=== PATIENT | female | born 1980 | race Caucasian/White ===

== ENCOUNTER 2016-12-18 00:01 | Emergency (ER) | payer MEDICAID ==
--- NOTE | 2016-12-18 04:34 | ER ---
ADMIT: 12/18/2016 RM/LOC: ER [facility] MR#: [id number] [address] [facility] [place], [place] [address] LENO SRINIVASAN [address] [facility] [address] [place] [address] Emergency Room Report SEX: F AGE: 36 : 1980 DATE: 12/18/2016 The patient is a 36-year-old female, 13-week , last menstrual period 09/18/2016, complains of lower abdominal cramping and vaginal bleeding that is escalated for the past 5 days, was evaluated by Dr. Gee with ultrasound that showed viable intrauterine and subchorionic hemorrhage. The patient has been on vaginal progesterone suppositories since. Denies any fevers, chills, or dysuria. Exam remarkable for nontoxic, afebrile female, slightly tender uterus, minimal vaginal bleeding. Hemoglobin 11.8, lactic 2.9, potassium 3.3, quantitative hCG 85,309. Ultrasound shows a viable 13-week with heart rate of 158, large subchorionic hemorrhage measuring 5.6 x 7.4 x 7.4 cm consistent with a subchorionic hemorrhage. No evidence of heterotopic or intraperitoneal free fluid. The patient was given a liter of fluid, Zofran 8 mg IV push, Dilaudid 1 mg IV push with improvement of pain. Home with pelvic rest, follow up with Dr. Gee as scheduled on Saturday. The patient declined any hydrocodone. Ravi Snyder MD/ lucy JOB #: [id number] CC: Ravi Snyder MD, Attending Physician Krystal Gee MD, Family Physician Krystal Gee MD
[2017-01-11] MEDS ORDERED: PRENATAL VIT1 TAB PO (16:20)
[2017-01-11] MEDS ORDERED: FEOSOL-DPS325 MG PO (16:21)
[2017-01-11] MEDS ORDERED: MOTRIN-DPS800 MG PO (16:21)
[2017-01-11] MEDS ORDERED: COLACE-DPS100 MG PO (16:21)
== END 2016-12-18 01:57 | disposition home or self-care (01) ==
LOC: ER 00:01
DX: O20.0 Threatened abortion (principal); Z3A.13 13 weeks gestation of pregnancy; Z79.899 Other long term (current) drug therapy

== ENCOUNTER 2017-01-09 02:17 | Observation (INO) | payer MEDICAID ==
[~2017-01-09] VITALS: Ht 185.4 cm; Wt 79.4 kg
--- NOTE | ~2017-01-09 | HP ---
ADMIT: 01/09/2017 RM/LOC: 217 [facility] MR#: [id number] [address] [facility] [place], [place] [address] LENO SRINIVASAN [address] [facility] 3 [place] [address] History and Physical SEX: F AGE: 36 : 1980 DATE OF SERVICE: 01/09/2017 CHIEF COMPLAINT: Delivered at home. HISTORY OF PRESENT ILLNESS: This is a 36-year-old female, 1, now para 0-1-0-0, who delivered an approximate 16-week fetus at home and then presented to the ER for further management and care. According to ER staff physician, the placenta did deliver easily while in the emergency room. She had a small amount of bleeding but overall, her bleeding has been very minimal. She did have an ultrasound done while in the emergency room showing a thickened endometrium measuring up to 2.8 cm with possible retained products of conception. At this time, the patient reports that her was complicated by bleeding. She had been followed closely every week. She did have increased bleeding, starting on Saturday that seemed to be better on Saturday but worsened on Saturday. She eventually delivered her fetus at home early Saturday morning and then presented to the emergency room. Her has otherwise been uncomplicated. Her care has been with Dr. Gee. She, at this time, denies passing any clots. She does have increased bleeding when she is standing. She denies pain, cramping, fevers, or chills. PAST MEDICAL HISTORY: She denies hypertension, diabetes, asthma, kidney, or thyroid disease. PAST SURGICAL HISTORY: Tonsillectomy. PAST OBSTETRICAL HISTORY: This was her first . SOCIAL HISTORY: She denies tobacco, alcohol, or drug use. ALLERGIES: NO KNOWN DRUG ALLERGIES. CURRENT MEDICATIONS: vitamins. REVIEW OF SYSTEMS: GENERAL: She denies any recent fevers or chills. HEENT: She denies headaches, vision changes, difficulty swallowing, or sore throat. NECK: She denies neck pain or stiffness. RESPIRATORY: She denies coughing, shortness of breath, or difficulty breathing. CARDIOVASCULAR: She denies palpitations, chest pain, or shortness of breath. GASTROINTESTINAL: She does have nausea and heartburn and has had these symptoms throughout her . She also has constipation. She denies diarrhea or blood in her stools. GENITOURINARY: Bleeding during this last month of . She denies dysuria, frequency, urgency, or hematuria. MUSCULOSKELETAL: She denies joint pain, muscle pain, or muscle weakness. NEUROLOGIC: She denies dizziness or weakness in her extremities. HEMATOLOGIC: She denies history of bleeding disorders, blood clots, or ADMIT: 01/09/2017 RM/LOC: 217 [facility] MR#: [id number] [address], [place] [address] History and Physical SEX: F AGE: 36 : 1980 prolonged spontaneous bleeding. PHYSICAL EXAMINATION: VITAL SIGNS: Temperature is 96.9, pulse 79, respirations 18, blood pressure is 107/55. GENERAL: She is not in any acute distress. HEENT: Head is normocephalic, atraumatic. Pupils are equal, round, and reactive to light and accommodation. Extraocular muscles are intact. NECK: Supple. HEART: Regular rate and rhythm. LUNGS: Clear bilaterally. ABDOMEN: Soft, nontender, and nondistended. EXTREMITIES: Nontender. IMAGING: Pelvic ultrasound shows thickened endometrium, measuring up to 2.8 cm with possible retained products of conception. Her blood type is O positive. Hemoglobin 9.4. IMPRESSION: This is a 36-year-old female, 1, para 0-1-0-0, currently day zero from a delivery at approximately 16 weeks with possible retained products of conception. PLAN: At this time, we have discussed options of conservative management versus proceeding with a dilatation and curettage. We have reviewed the risks and benefits of each. At this time, after discussion, she would like to proceed with the D and C. We discussed the potential risks for bleeding, infection, perforation of the uterus, and potential for injury to nearby organs, requiring repair. All of her questions have been answered and she does agree to proceed. Kaitlyn Emanuel MD/ lucy JOB #: [id number] CC: Kaitlyn Emanuel, Attending Physician Kaitlyn Emanuel, Family Physician
--- NOTE | 2017-01-09 19:07 | ER ---
ADMIT: 01/09/2017 RM/LOC: ER [facility] MR#: [id number] [address] [facility] [place], [place] [address] LENO SRINIVASAN [address] [facility] [address] [place] [address] Emergency Room Report SEX: F AGE: 36 : 1980 DATE: 01/09/2017 The patient is a 36-year-old female, 1, para 0, who came to the ER with chief complaint of passage of tissue, products of through uterus. Per LMP, which is 09/18/2016, the patient is 16 weeks, and 2 weeks ago, patient had vaginal bleeding, came to the ER and was discharged with diagnosis of intrauterine , viable, and threatened . The patient states today she had more vaginal bleeding and lower abdominal cramping and also she noticed passage of tissue and passage of the matter. The patient brought the small fetus with complete limbs and head and body with her. When the EMS got there, the part was delivered, but the cord and the placenta was not delivered. The patient was brought to the ER, the patient had moderate pain and received morphine 6 mg IV. Vitals were stable. With gentle uterine massage and gentle pulling on the cord, the cord and the placenta were delivered. Followup of the placenta and the membranes did not show any obvious defect. The patient was observed for an hour, she was in no pain or distress. Hemoglobin was 10. The patient's blood group was O positive. The patient was re-examined and there was about 7 mL of blood in the vaginal vault, which was suctioned. There were no obvious products of or tissue at the cervical area. Grossly, abdominal exam showed the uterus is becoming more firm and contracted. The patient received Methergine, Dr. Emanuel, damage prevention coordinator was consulted and advised to have a transvaginal ultrasound looking for returned product of conception. Transvaginal ultrasound showed heterogeneous and thickened endometrium, with questionable retained products of , without any obvious vascular involvement. Dr. Emanuel was contacted and advised the patient be admitted for observation, and further followups. Brett Edge MD/ lucy JOB #: [id number] CC: Brett Edge MD, Attending Physician Krystal Gee MD, Family Physician
[2017-01-11] MEDS ORDERED: PRENATAL VIT1 TAB PO (16:20)
[2017-01-11] MEDS ORDERED: MOTRIN-DPS800 MG PO (16:21)
[2017-01-11] MEDS ORDERED: COLACE-DPS100 MG PO (16:21)
[2017-01-11] MEDS ORDERED: FEOSOL-DPS325 MG PO (16:21)
--- NOTE | 2017-01-29 10:17 | OR ---
ADMIT: 01/09/2017 RM/LOC: 217 [facility] MR#: [id number] [address] [address] [place] [address] [place] [address] Operative/Delivery Room Report SEX: F AGE: 36 : 1980 SURGERY DATE: 01/09/2017 SURGEON: Kaitlyn Emanuel MD PREOPERATIVE DIAGNOSIS: Retained products of conception. POSTOPERATIVE DIAGNOSIS: Retained products of conception. PROCEDURE: Dilatation and curettage. ANESTHESIA: General endotracheal. COMPLICATIONS: None. ESTIMATED BLOOD LOSS: 300 mL. FLUIDS: Crystalloid. INDICATIONS: This is a 36-year-old female, 1, para 0-1-0-0, who delivered a 16-week fetus at home and subsequently presented to the emergency room. She did experience delivery of her placenta; however, following this and ultrasound was performed, which showed possible retained products of conception. We did discuss management options, reviewed the risks and benefits of each, and she elected to proceed with the dilatation and curettage. FINDINGS: Enlarged uterus sounding to 11 cm. Small amount of products of conception. DESCRIPTION OF PROCEDURE: The patient was properly identified. Informed consent was obtained. She was then taken to the operating room where general anesthesia was established. She was then placed in the dorsal lithotomy position using the candy-cane stirrups and prepped and draped in usual sterile fashion. Her bladder was emptied using a red Galdamez catheter. Weighted speculum was placed in the vagina, and right angle retractor was used to ADMIT: 01/09/2017 RM/LOC: 217 [facility] MR#: [id number] [address] [address] [place], [address] [place] [address] Operative/Delivery Room Report SEX: F AGE: 36 : 1980 visualize the cervix. The anterior portion of the cervix was grasped with a tenaculum. The uterus did sound to 11 cm. A large banjo curette was gently advanced to the uterine fundus, and sharp curettage was performed until a gritty texture was noted in all 4 quadrants. I did use ultrasound guidance for the procedure in an attempt to curette the entire cavity. Following this, bimanual massage was performed, and the patient was given Methergine 0.2 mg IM x1. The tenaculum was removed from the anterior portion of the cervix. The tenaculum sites were noted to be hemostatic. I did also place 800 mcg of misoprostol rectally to help the uterus contract as well. The speculum was then removed from the patient's vagina. The patient tolerated the procedure well. Sponge, lap, needle, and instrument counts were correct. She was taken to the recovery room in stable condition. Kaitlyn Emanuel MD/ lucy JOB #: [id number] CC: Kaitlyn Emanuel, Attending Physician Kaitlyn Emanuel, Family Physician
== END 2017-01-10 10:30 | disposition home or self-care (01) ==
LOC: ER 02:17 → 2LDRP 06:00
PROVIDERS: ADMIT Obstetrics & Gynecology
PROC: 10D17ZZ Extraction of Products of Conception, Retained, Via Natural or Artificial Opening (ICD-10-PCS; principal; 2017-01-09)
DX: O02.89 Other abnormal products of conception (principal); Z3A.16 16 weeks gestation of pregnancy; K21.9 Gastro-esophageal reflux disease without esophagitis; Z98.890 Other specified postprocedural states

== ENCOUNTER 2017-02-04 23:05 | Emergency (ER) | payer MEDICAID ==
[~2017-02-04 23:05] MED LIST: COLACE-DPS100 MG PO; FEOSOL-DPS325 MG PO; MOTRIN-DPS800 MG PO; PRENATAL VIT1 TAB PO
--- NOTE | 2017-02-16 08:35 | ER ---
ADMIT: 02/04/2017 RM/LOC: ER [facility] MR#: [id number] [address] [facility] [place], [place] [address] LENO SRINIVASAN [address] [facility] 3 [place] [address] Emergency Room Report SEX: F AGE: 36 : 1980 DATE: 02/04/2017 A 36-year-old female, comes to the emergency department with complaints of abdominal pain, was sudden onset, sharp and middle to upper abdomen, woke her up from sleep, has progressively worsened. She said she had a bowel movement prior to coming to the emergency department with no resolution of the symptoms. See T-sheet for remainder of history and physical. CBC was remarkable for hemoglobin of 11.4, potassium 3.6, glucose 101. CT scan official overread by Radiology has not been made yet, however, anticipate this patient going home pending anything abnormal seen on the CT scan. DIAGNOSES: 1. Abdominal pain. 2. Constipation. PLAN: She will be encouraged to use laxative and followup if not better in 3 or 4 days. Daniel Tse MD/ lucy JOB #: [id number] CC: Ravi Snyder MD, Attending Physician Nanda Aguilar MD, Family Physician
== END 2017-02-05 00:48 | disposition home or self-care (01) ==
LOC: ER 23:05
DX: K59.00 Constipation, unspecified (principal)